=== PATIENT | female | born 1995 | race Caucasian/White ===

== ENCOUNTER 2018-11-05 17:34 | Emergency (ER) | payer OTHER, MEDICAID ==
[~2018-11-05] VITALS: Ht 157.5 cm; Wt 54.4 kg
[~2018-11-05 17:34] MED LIST: FLEXERIL PO; NOHOMEMEDICATIONS; NORCO 5-325 TA1 EACH PO
[2018-11-05 18:20] LABS: URINE BILIRUBIN NEGATIVE (Negative); URINE BLOOD 3+ (Negative); URINE CLARITY CLEAR; URINE COLOR YELLOW; URINE GLUCOSE-RANDOM NEGATIVE (Negative); URINE KETONES 1+ (Negative); URINE LEUKOCYTES-REFLEX 2+ (Negative); URINE NITRITE-REFLEX NEGATIVE (Negative); URINE PROTEIN 1+ (Negative); URINE SPECIFIC GRAVITY 1.025 (1.005-1.030); URINE UROBILINOGEN 0.2 E.U./dl (0.2-1.0)
[2018-11-05 18:28] LABS: ABSOLUTE EOSINOPHILS 0.1 thou/uL (0.0-0.7); ABSOLUTE LYMPHOCYTES 1.3 thou/uL (0.8-5.3); ABSOLUTE MONOCYTES 0.4 thou/uL (0.0-1.2); ABSOLUTE NEUTROPHILS 4.9 thou/uL (1.6-8.1); BASOPHILS 0.4 %; EOSINOPHILS 2.1 %; HEMATOCRIT 35.7 % (37.0-47.0); HEMOGLOBIN 11.9 gm/dL (12.0-15.0); LYMPHOCYTES 18.6 %; MCH 27.4 pg (26.0-34.0); MCHC 33.4 g/dL (28.0-37.0); MONOCYTES 5.5 %; MPV 8.3 fl. (7.2-11.1); NUCLEATED RBCS 0 /100WBC; PLATELET COUNT* 256 thou/uL (150-400); POLYS 73.4 %; RBC 4.35 mil/uL (4.20-5.00); RDW-CV 13.2 % (10.5-14.5); WBC 6.7 thou/uL (4.0-11.0)
[2018-11-05 18:30] LABS: SQUAMOUS >10 Many /LPF (0-3)
[2018-11-05 18:31] LABS: BACTERIA-REFLEX 1-9 Few /HPF (None Seen); MUCUS None Seen strn/LPF (None Seen)
[2018-11-05 18:32] LABS: CASTS None Seen /LPF (None Seen); CRYSTALS None Seen /LPF (None Seen); URINE RBC >20 Many /HPF (0-2)
[2018-11-05 18:44] LABS: ALBUMIN 3.6 g/dL (3.4-5.0); CALCIUM 8.9 mg/dL (8.5-10.1); CREATININE 0.8 mg/dL (0.6-1.3); POTASSIUM 3.7 mmol/L (3.5-5.1); TOTAL BILIRUBIN 0.4 mg/dL (<0.1-1.0); TOTAL PROTEIN 7.1 g/dL (6.4-8.2)
[2018-11-05] MEDS ORDERED: BACTRIM DS TAB1 EACH PO (19:46)
[2018-11-05] MEDS ORDERED: NAPROSYN500 MG PO (19:46)
[2018-11-05] MEDS ORDERED: CITRATE OF MAG296 ML PO (19:46)
[2018-11-05 20:05] VITALS: BP 140/70
== END 2018-11-05 20:05 | disposition home or self-care (01) ==
LOC: M.ERS 17:34
PROVIDERS: Nurse Practitioner Family
DX: N39.0 Urinary tract infection, site not specified (principal); K59.00 Constipation, unspecified; R11.10 Vomiting, unspecified

== ENCOUNTER 2021-05-29 20:50 | Day surgery (SDC) | payer OTHER ==
[~2021-05-29] VITALS: Ht 157.5 cm; Wt 55.3 kg
--- NOTE | ~2021-05-29 | PROC ---
[address] [address] PROCEDURE REPORT Name: GEORGE DAVILA Room: [facility]#: [id number] Admission: 05/29/21 Attend Phys: Will Pierce DO Discharge: 05/30/21 Date of : [birth year] Report #: [id number] THIS REPORT FOR: cc: Lily Bradshaw Ahmad W. DO [facility],Medical Records Staff ~ For Gi report, please see the Provation report in Perceptive 7 content. By: 0658Medical Records Staff CHE /ABEL
[~2021-05-29 20:50] MED LIST changes: +BACTRIM DS TAB1 EACH PO; +CITRATE OF MAG296 ML PO; +NAPROSYN500 MG PO
[2021-05-29] MEDS ORDERED: BIRTH CONTROL (21:08)
[2021-05-29 22:58] VITALS: BP 118/57
--- NOTE | 2021-06-02 11:08 | PATH ---
[address] [address] PATHOLOGY RPT PROCEDURE Name: AFSHAN ELMORE Room: [facility] Chante#: [id number] Admission: 05/29/21 Date of : [birth year] Discharge: 05/30/21 Report #: [id number] Path Case #: [id number] [facility] Accession Number: [id number] . 01 Material submitted: . PART A: esophagus - ESOPHAGEAL BIOPSY AT 33CM PART B: esophagus - ESOPHAGEAL BIOPSY AT 28CM . 01 Clinical history: . EGD IN OR . 02 Diagnosis: A and B. Esophageal biopsy at 33 cm and at 28 cm: - Typical of eosinophilic (allergic) esophagitis. See comment. LBQ 06/01/2021 1018 Local . 02 Comment: Both the esophageal biopsies show similar findings of benign esophageal mucosa with eosinophils averaging at least 20 per high power field also noted to show surface aggregation along with marked basilar cell hyperplasia. In the 28 cm biopsy there is some fibrosis of the submucosa as well. (MICHAEL/db; 06/01/2021) . 02 Electronically signed: . Godwin Vidal MD, Pathologist NPI- [id number] . 01 Gross description: . A. The specimen is submitted in formalin, labeled "Afshan Elmore, esophageal biopsy at 33 cm". Received are 2 segments of pale etienne tissue ranging in size from 0.4 to 0.5 cm in maximum dimensions. The specimen is submitted entirely in cassette A1. . B. The specimen is submitted in formalin, labeled "Afshan Elmore, esophageal biopsy at 28 cm". Received are multiple segments of pale etienne measuring 0.6 x 0.6 x 0.1 cm in aggregate dimensions. The specimen is submitted entirely in cassette B1. ([facility]; 05/31/2021) NRI/NRI 05/31/2021 1453 Local . 02 Pathologist provided ICD-10: K22.9 . 02 CPT . 088393, [id number] Specimen Comment: A courtesy copy of this report has been sent to [phone], [phone], [place] [address] PATHOLOGY RPT PROCEDURE Name: AFSHAN ELMORE [id number] Admission: 05/29/21 Date of : [birth year] Discharge: 05/30/21 Report #: [id number] Path Case #: [id number] Specimen Comment: [id number] Specimen Comment: Report sent to / DR DANIELS Specimen Comment: A duplicate report has been generated due to demographic updates. Performed at: 01 [facility] [address], [place], [place] [id number] MD Matthew Martin MD Phone: [phone] Performed at: 02 [facility] Karina Pichardo, [place], [place] [id number] MD Godwin Vidal MD Phone: [phone]
== END 2021-05-30 00:30 | disposition home or self-care (01) ==
LOC: M.ERS 20:50 → M.GI 22:08
PROVIDERS: ATTEND Internal Medicine Gastroenterology
DX: K22.10 Ulcer of esophagus without bleeding (principal); T18.108A Unspecified foreign body in esophagus causing other injury, initial encounter; T18.128A Food in esophagus causing other injury, initial encounter; K22.2 Esophageal obstruction; K44.9 Diaphragmatic hernia without obstruction or gangrene; K22.89 Other specified disease of esophagus; R13.14 Dysphagia, pharyngoesophageal phase; R12 Heartburn; Z98.890 Other specified postprocedural states; Z79.899 Other long term (current) drug therapy; Z20.822 Contact with and (suspected) exposure to COVID-19; Z88.8 Allergy status to other drugs, medicaments and biological substances; X58.XXXA Exposure to other specified factors, initial encounter; Y93.89 Activity, other specified; Y92.89 Other specified places as the place of occurrence of the external cause; Y99.8 Other external cause status

== ENCOUNTER 2021-07-15 11:24 | Emergency (ER) | payer OTHER ==
[~2021-07-15] VITALS: Ht 157.5 cm; Wt 55.8 kg
[~2021-07-15 11:24] MED LIST changes: +BIRTH CONTROL
[2021-07-15 11:30] VITALS: BP 138/103
[2021-07-15 12:03] LABS: MCH 28.3 pg (26.0-34.0); MCHC 34.4 g/dL (28.0-37.0); NUCLEATED RBCS 0 /100WBC; WBC 13.5 thou/uL (4.0-11.0)
[2021-07-15 12:05] LABS: HEMATOCRIT 40.8 % (37.0-47.0); MCV 82.3 fL (80.0-100.0); MPV 8.9 fl. (7.2-11.1); PLATELET COUNT* 254 thou/uL (150-400); RBC 4.96 mil/uL (4.20-5.00); RDW-CV 12.5 % (10.5-14.5)
[2021-07-15 12:22] LABS: ALBUMIN 4.3 g/dL (3.4-5.0); CALCIUM 9.3 mg/dL (8.5-10.1); CREATININE 0.8 mg/dL (0.6-1.3); TOTAL BILIRUBIN 0.7 mg/dL (<0.1-1.0)
[2021-07-15 12:41] LABS: ALCOHOL < 10 mg/dL (<10)
[2021-07-15 12:42] LABS: ACETAMINOPHEN < 2 ug/mL (10-30)
[2021-07-15 12:43] LABS: SALICYLATE < 2.8 mg/dL (2.8-20.0)
[2021-07-15 13:47] LABS: ABSOLUTE LYMPHOCYTES 0.8 thou/uL (0.8-5.3); ABSOLUTE NEUTROPHILS 12.7 thou/uL (1.6-8.1)
[2021-07-15 13:51] LABS: PLATELET ESTIMATE ADEQUATE
[2021-07-15 14:16] LABS: AMP/METHAMP Negative (Negative); BARBITURATES Negative (Negative); BENZODIAZEPINES Negative (Negative); COCAINE Negative (Negative); METHADONE Negative (Negative); OPIATES Negative (Negative); PCP Negative (Negative); THC Negative (Negative)
[2021-07-15 14:20] LABS: URINE BILIRUBIN NEGATIVE (Negative); URINE BLOOD NEGATIVE (Negative); URINE CLARITY CLEAR; URINE COLOR YELLOW; URINE GLUCOSE-RANDOM NEGATIVE (Negative); URINE KETONES 1+ (Negative); URINE LEUKOCYTES-REFLEX NEGATIVE (Negative); URINE NITRITE-REFLEX NEGATIVE (Negative); URINE PROTEIN NEGATIVE (Negative); URINE SPECIFIC GRAVITY <= 1.005 (1.005-1.030); URINE UROBILINOGEN 0.2 E.U./dl (0.2-1.0)
[2021-07-15 14:29] LABS: AMP/METHAMP Negative (Negative); BARBITURATES Negative (Negative); BENZODIAZEPINES Negative (Negative); COCAINE Negative (Negative); METHADONE Negative (Negative); OPIATES Negative (Negative); PCP Negative (Negative); THC Negative (Negative)
[2021-07-15 15:07] LABS: URINE BILIRUBIN NEGATIVE (Negative); URINE BLOOD NEGATIVE (Negative); URINE CLARITY CLEAR; URINE COLOR YELLOW; URINE GLUCOSE-RANDOM NEGATIVE (Negative); URINE KETONES 1+ (Negative); URINE LEUKOCYTES-REFLEX NEGATIVE (Negative); URINE NITRITE-REFLEX NEGATIVE (Negative); URINE PROTEIN NEGATIVE (Negative); URINE SPECIFIC GRAVITY <= 1.005 (1.005-1.030); URINE UROBILINOGEN 0.2 E.U./dl (0.2-1.0)
[2021-07-15 19:21] VITALS: BP 122/69
--- NOTE | 2021-07-16 10:46 | EKG ---
[place] [address] ELECTROCARDIOGRAM REPORT Name: GEORGE DAVILA Room: [facility]#: [id number] Admission: 07/15/21 Attend Phys: Discharge: 07/15/21 Date of : [birth year] Date of Service: 07/15/21 1145 Report #: [id number] THIS REPORT FOR: //name// [facility] ED Test Date: 2021-07-15 Test Time: 11:45:33 Pat Name: GEORGE DAVILA Department: Room: Gender: F Helpdesk Analyst: : 1995 Requested By: Thomas Spangler Order Number: [id number] MD: Marco Antonio Arteaga Measurements Intervals [place] Rate: 105 P: 70 AR: 138 QRS: 74 QRSD: 67 T: -35 QT: 331 QTc: 438 Interpretive Statements Sinus tachycardia Borderline repolarization abnormality No previous ECG available for comparison Electronically Signed On 07-16-2021 10:46:22 DIRECTOR [employer]CHITECTURE by Marco Antonio Arteaga [email or web address] <ELECTRONICALLY SIGNED> By: Marco Antonio Arteaga MD, [facility] 07/16/21 1046 1145 1145 Marco Antonio Arteaga MD, FACC /EPI
== END 2021-07-15 19:21 | disposition admitted as inpatient to this hospital (09) ==
LOC: M.ERS 11:24 → M.TBA-ER 14:41
PROVIDERS: Family Medicine
DX: R51.9 Headache, unspecified (principal); Z20.822 Contact with and (suspected) exposure to COVID-19; R41.82 Altered mental status, unspecified; Z91.041 Radiographic dye allergy status